=== PATIENT | male | born 1945 | race Caucasian/White ===

== ENCOUNTER → 2023-12-28 | Outpatient (CLI) | payer BC ==
[~2023-12-28] MED LIST: Iohexol 300 - 100 ML VIAL IV ONE
== END ==
LOC: RAD 09:34
DX: N28.89 Other specified disorders of kidney and ureter (principal); D72.820 Lymphocytosis (symptomatic)
CPT/HCPCS: Q9967

== ENCOUNTER → 2024-04-11 | Outpatient (CLI) | payer MEDICARE, BC | LOC: RAD 10:43 | DX: Z01.818 Encounter for other preprocedural examination (principal); C64.1 Malignant neoplasm of right kidney, except renal pelvis ==

== ENCOUNTER → 2024-06-26 | Outpatient (CLI) | payer MEDICARE, BC ==
[2024-06-26 10:15] LABS: BASO # 0.02 K/mm3 (0.02-0.10); EOS # 0.12 K/mm3 (0.04-0.40); EOS % 1.4 % (0.0-4.0); HEMOGLOBIN 13.1 g/dL (13.5-18.0); LYMPH# 4.59 K/mm3 (1.50-4.00); MEAN CELL VOLUME 99 fl (78-100); MEAN CORPUSCULAR HEMOGLOBIN 33 pg (27-31); MEAN CORPUSCULAR HGB CONC 33 g/dL (33-37); MEAN PLATELET VOLUME 9.1 fl (7.4-10.4); MONO # 0.48 K/mm3 (0.20-0.80); NEU # 3.37 K/mm3 (1.40-6.50); PLATELET COUNT 185 K/mm3 (130-400); RED BLOOD COUNT 4.03 M/mm3 (4.20-5.60); RED CELL DISTRIBUTION WIDTH 12.3 % (11.5-14.5); WHITE BLOOD COUNT 8.6 K/mm3 (4.8-10.8)
[2024-06-26 10:20] LABS: ALBUMIN 4.1 g/dL (3.4-4.8)
[2024-06-26 10:21] LABS: CALCIUM 9.4 mg/dL (8.3-10.5)
[2024-06-26 10:22] LABS: TOTAL PROTEIN 6.7 g/dL (6.2-8.1)
[2024-06-26 10:24] LABS: TOTAL BILIRUBIN 0.4 mg/dL (0.2-1.2)
== END ==
LOC: LAB 10:03
PROVIDERS: Internal Medicine
DX: D72.820 Lymphocytosis (symptomatic) (principal)